=== PATIENT | male | born 1930 | race Caucasian/White ===

== ENCOUNTER 2016-07-02 22:26 | Inpatient (IN) | payer MEDICARE, OTHER ==
--- NOTE | ~2016-07-02 | CN ---
Consultation Report [facility] [address] [place]. [address] NAME: LUCIAN ZARATE : 29 STATUS : ADM IN [facility]#: [id number] AGE: 86 ADM/REG DATE : 07/02/16 MR#: [id number] REPORT SERV DATE: 07/04/16 DICTATED BY: JS MORALES DATE: 07/03/16 REPORT STATUS : Draft TRANSCRIBED BY: MODPadma DATE: 07/03/16 CONSULT DATE OF CONSULTATION: IMPRESSION: 1. Scrotal and penile edema. 2. Paraphimosis. 3. Benign prostatic hypertrophy with catheter. 4. Bilateral lower extremity edema. 5. Possible urinary tract infection. PLAN: Manual reduction of paraphimosis. Keep López catheter for acute urinary retention secondary to BPH. Catheter care b.i.d. Keep outpatient followup with Dr. Snyder regarding BPH. Continue Levaquin IV and await for culture results. Dr. Snyder to follow the patient through the course of hospital stay as well as follow up outpatient with the patient. HISTORY OF PRESENT ILLNESS: The patient presented to the hospital for shortness of breath and lower extremity edema. The patient was here a week ago, had failed two voiding trials, and therefore, has a López catheter in place until his followup appointment with Dr. Snyder in two weeks. Upon examination, the patient has paraphimosis with López catheter in place. López catheter draining appropriately with clear yellow urine. Paraphimosis reduced. The patient did not tolerate very well. The patient states that he has a flow stream normally and was told in the past that he has an enlarged prostate, which may be causing the blockage of urine. He does have some pus around the meatus and there is a culture out that has been sent on 07/02/2016. The patient was started on Levaquin IV in the meantime. The patient also has bilateral lower extremity edema along with the scrotal and penile edema. I discussed with the patient that as they evaluate and treat the pumping mechanism of the heart that the edema should resolve and then the patient states that there is significant improvement from yesterday to today on the swelling. The patient does not have pain in the scrotal or penile area at this time. The patient's creatinine is slightly elevated at 1.6, decreased from admission at 1.8 on 07/02/2016. The patient has been afebrile with a heart rate in the 90s, blood pressure slightly elevated in the 140s over 60s, respirations 16 to 18, the patient was on room air. PAST MEDICAL HISTORY: Significant for chronic congestive heart failure, hypertension, coronary artery disease with CABG x2, chronic kidney disease stage 3, BPH with indwelling López catheter x1 week, type 2 diabetes, peripheral vascular disease, and osteoporosis. SOCIAL HISTORY: Has never smoked. Does not partake in alcohol or recreational drugs. FAMILY HISTORY: Unable to obtain at this time. MEDICATIONS: Home medications were reviewed by me. Consultation Report [facility] [id number] [facility] [place]. [address] NAME: LUCIAN ZARATE : 29 STATUS : ADM IN [facility]#: [id number] AGE: 86 ADM/REG DATE : 07/02/16 MR#: [id number] REPORT SERV DATE: 07/04/16 DICTATED BY: JS MORALES DATE: 07/03/16 REPORT STATUS : Draft TRANSCRIBED BY: MARISSA DATE: 07/03/16 PHYSICAL EXAMINATION: GENERAL: This is a pleasant 86-year-old male in no acute distress. He is alert and oriented. ABDOMEN: Soft and nontender. Bladder nondistended. : López catheter in place. No prostate exam at this time. EXTREMITIES: Bilateral lower extremity pitting edema in feet, ankles, and calves. There is also edema in his scrotum and his penis, although minimal at this time. All questions from family and patient were answered and discussed at great length including outpatient options for the BPH and catheter removal; however, we discussed that Dr. Snyder would be the expert on all the options at that time. LAR/MODL JS MORALES NP / [id number] CC: MD Corazon Bartlett M.D.
--- NOTE | ~2016-07-02 | HP ---
History And Physical [facility] [place] [id number] [place]. [address] NAME: LUCIAN ZARATE : 29 STATUS : ADM IN [facility]#: [id number] AGE: 86 ADM/REG DATE : 07/02/16 MR#: [id number] REPORT SERV DATE: 07/03/16 DICTATED BY: RON REID DATE: 07/02/16 REPORT STATUS : Draft TRANSCRIBED BY: MODL DATE: 07/02/16 DATE OF ADMISSION: 07/02/2016 CHIEF COMPLAINT: Swelling in both his legs and pain. HISTORY OF PRESENT ILLNESS: This is an 86-year-old male, who presents to the emergency room at [facility] with the above-mentioned complaint. He does have a history of benign prostatic hypertrophy with chronic indwelling López, chronic congestive heart failure, chronic kidney disease stage 3, moderate aortic stenosis, and other medical problems as well. History is obtained from the patient, his son who is at bedside, and reviewing data available on the [employer] system. According to Mr. Zarate, who was recently discharged from this hospital on 06/27/2016 with indwelling López catheter and a followup appointment with Dr. Lj Snyder, he had been doing fine at home until the last couple of days, when he started noticing swelling in his lower extremities. Today, it became more severe, associated with pain, and he had pain and swelling in his penis as well. There was also discharge from his penis, which was kind of brownish in nature as well. He did have some low-grade fevers around 99 or above in the last two days as well according to the son. No chills. They finally decided to come to the emergency room to be evaluated. In the emergency room, initial workup including EKG and chest x-ray were unremarkable. His BNP today was 367.9. Lactate was 0.6 and he had a white blood cell count of 12,600. He had [id number] congestive heart failure with bilateral lower extremity edema along with edema of the penis and possibly UTI or discharge from his penis. Hospitalist Service is asked to admit him for further evaluation and treatment. At the time of my evaluation, he was not in any acute distress. He denied any chest pain, palpitations, or orthopnea. He had no cough, hemoptysis, night sweats, or weight loss. He denied any recent falls or loss of consciousness. No history of chills, but he did have fevers, low grade as mentioned above. He denied any nausea, vomiting, diarrhea, hematemesis, hematochezia. He did have some brownish-colored discharge from his penis, possibly pus. No history of recent travel or exposures other than those mentioned above. PAST MEDICAL HISTORY: Significant for chronic diastolic congestive heart failure, history of hypertension, coronary artery disease with CABG, history of chronic kidney disease stage 3, benign prostatic hypertrophy with chronic indwelling López followed by Dr. Snyder, history of diabetes mellitus type 2, history of aortic stenosis, moderate peripheral vascular disease with right carotid endarterectomy, and osteoporosis. SOCIAL HISTORY: He does not smoke, drink, or use recreational drugs at this time. FAMILY HISTORY: Noncontributory. MEDICATIONS: At home were reviewed by me in the chart today and reordered by me. History And Physical [address] [address] NAME: LUCIAN ZARATE : 29 STATUS : ADM IN [facility]#: [id number] AGE: 86 ADM/REG DATE : 07/02/16 MR#: [id number] REPORT SERV DATE: 07/03/16 DICTATED BY: RON REID DATE: 07/02/16 REPORT STATUS : Draft TRANSCRIBED BY: MARISSA DATE: 07/02/16 REVIEW OF SYSTEMS: As in history of present illness. All other systems were reviewed in detail and are quite unremarkable. PHYSICAL EXAMINATION: GENERAL: This is a pleasant 86-year-old, not in any acute distress. HEENT: His head is atraumatic, normocephalic. He is alert, awake, oriented to time, place, and person. Pupils are equal, reacting to light and accommodating. External ocular muscles are intact. Membranes are moist and pink. Sclerae are nonicteric. NECK: Supple with no jugular venous distention, lymphadenopathy, or thyromegaly. LUNGS: Clear to auscultation with no wheezes, rubs, or crackles. HEART: Heart sounds were regular with no murmurs, rubs, or gallops. ABDOMEN: Soft, nontender. Bowel sounds are present. EXTREMITIES: Showed bilateral pitting lower extremity edema with increased girth and increased warmth as well. His legs were quite painful as well. Swelling extends all the way up to his pelvis, including the penis. There was not much of a scrotal edema. NEUROLOGIC: Grossly intact. No focal sensory or motor deficits. Higher functions appeared intact. Gait was not examined. VITAL SIGNS: His vital signs today showed a temperature of 98.7, pulse 91, respirations 18 a minute, blood pressure was 144/62, and oxygen saturations were 92% on room air. LABORATORY DATA: Reviewed on the [employer] system showed white blood cell count of 12,600, hemoglobin was 10.9, hematocrit 34.8, and platelet count was 546,000. CMP showed a sodium of 141, potassium 4.5, chloride 105 and CO2 of 26, BUN was 37, creatinine was 1.89, and glucose was 124. His troponin today was 0.02 and as mentioned above, his BNP was 367.9. Films of the chest x-ray were reviewed by me on the PACS today and interpreted by me. Per my interpretation, there are no lobar consolidations, pleural effusions, or infiltrates. Bony architecture was normal. There was no cardiomegaly. A 12-lead EKG done in the emergency room was reviewed and interpreted by me. There is normal sinus rhythm with a rate of [address]-T changes. IMPRESSION: 1. Bilateral lower extremity edema. 2. Embla-tw-hupeggm congestive heart failure. 3. Penile edema with possible infection. 4. Urinary tract infection. 5. Hypertension. 6. Coronary artery disease with coronary artery bypass graft. 7. Chronic kidney disease stage 3. 8. Benign prostatic hypertrophy with chronic López catheter. 9. Diabetes mellitus type 2. 10.Moderate aortic stenosis. 11.Peripheral vascular disease with right carotid endarterectomy. PLAN: We will admit Mr. Zarate to the Hospitalist Service with telemetry. After cultures are drawn, we will start him on empiric IV antibiotics. We will start him on levofloxacin at this time. Follow Gram stains and cultures and adjust accordingly. We will also go ahead History And Physical [address] [address] NAME: LUCIAN ZARATE : 28 STATUS : ADM IN [facility]#: [id number] AGE: 86 ADM/REG DATE : 07/02/16 MR#: [id number] REPORT SERV DATE: 07/03/16 DICTATED BY: RON REID DATE: 07/02/16 REPORT STATUS : Draft TRANSCRIBED BY: AMRISSA DATE: 07/02/16 and check his procalcitonin level. We will start him on intravenous diuretics. Follow outputs and daily weights, and also get an echocardiogram in the morning. We will also get a venous Doppler of the lower extremities to rule out DVT. Meanwhile, we will control blood sugars with NovoLog given subcutaneously per sliding scale. We will also consult Dr. Lj Snyder, his urologist, to see if there is a penile infection at this point. Apparently, during the last admission, there have been many catheterizations. Meanwhile, he will be on antibiotics and cultures will be drawn as well. We will also place him on low-dose unfractionated heparin for DVT prophylaxis while here. Please see today's orders for all the details. I have discussed the above plans with the patient and the son. Questions were answered and they are agreeable to the above recommendations. Hospitalist Service will be following him during his stay here. /MARISSA Ron Reid M.D. / [id number] CC: MD Corazon Bartlett M.D.
--- NOTE | ~2016-07-02 | DS ---
Discharge Summary [facility] [address] [place]. [address] NAME: LUCIAN ZARATE : 28 STATUS : DIS IN PAT#: [id number] AGE: 86 ADM/REG DATE : 07/02/16 MR#: [id number] REPORT SERV DATE: 07/05/16 DICTATED BY: JR. SONI WILLIAM JOHN DATE: 07/04/16 REPORT STATUS : Draft TRANSCRIBED BY: MARISSA DATE: 07/04/16 ADMISSION DATE: 07/02/2016 DISCHARGE DATE: 07/04/2016 DISCHARGE DIAGNOSES: Include. 1. Hypokalemia. 2. Penile edema and peripheral edema. 3. Hfwjv-hm-epuwgja diastolic heart failure. 4. Moderate aortic stenosis, which is decompensated. 5. Urinary tract infection. 6. Benign prostatic hypertrophy with chronic López. 7. Hypertension. 8. Chronic kidney disease, stage III. 9. Diabetes mellitus type 2. 10.History of peripheral vascular disease, status post left carotid endarterectomy. OPERATIONS, PROCEDURES, AND TREATMENTS: Include: 1. PA and lateral chest x-ray done 07/02/2016 which showed right pleural effusion with atelectasis at the right lung base, improved from prior study. 2. Venous Doppler ultrasound in bilateral lower extremities, which was unremarkable. 3. Blood cultures x2 done 07/02/2016, which are sterile. DISCHARGE MEDICATIONS: Include: 1. Aspirin 81 daily. 2. Plavix 75 daily. 3. Vitamin D 1000 units daily. 4. Lasix 40 mg every morning. 5. Neurontin 100 mg orally three times a day. 6. Melatonin 6 mg at bedtime. 7. Metoprolol 12.5 twice a day. 8. Nifedipine 60 mg daily. 9. Flomax 0.4 mg daily. 10.Crestor 40 mg daily. 11.Glipizide 2.5 daily. 12.Levaquin 750 mg every other day for two doses. HOSPITAL COURSE: The patient is an 86-year-old white male, presented with history of chronic kidney disease, chronic heart failure, moderate aortic stenosis, who presented to the emergency room on 07/02/2016 with complaint of increased leg swelling and pain. He had just been discharged from the hospital on 06/27/2016 with an indwelling López and had a followup appointment with Dr. Snyder. He had been doing fine in the last few days when he had rapid onset of increased swelling of the legs and penis. In the emergency room, the EKG and chest x-ray were unremarkable. BNP was elevated. White count was 12.6. Evidence of peripheral edema and pyuria. For full details of the admission history, physical, and data, please see Dr. Flores's Discharge Summary [address] [place]. [address] NAME: LUCIAN ZARATE : 28 STATUS : DIS IN PAT#: [id number] AGE: 86 ADM/REG DATE : 07/02/16 MR#: [id number] REPORT SERV DATE: 07/05/16 DICTATED BY: JR. SONI WILLIAM JOHN DATE: 07/04/16 REPORT STATUS : Draft TRANSCRIBED BY: MARISSA DATE: 07/04/16 dictated history and physical. The patient is admitted to the hospital where he was diuresed with IV Lasix. The patient had a brisk diuresis with a total of 40 mg IV x5 doses. He diuresed nearly 3 L. His penile swelling had nearly resolved. He was found to have phimosis and was seen by Urology. Dr. Snyder is to see the patient again today, and if the patient is stable, the patient will be discharged home. I spent considerable amount of time talking with the patient and family about the importance of salt and fluid restriction and weighing himself daily wearing the same clothes. The patient is followed by Dr. Marsh and knows to call if he has further problems. The patient's urinary tract infection was treated with Levaquin with a total of 5 day course. For discharge exam and laboratory, please see daily progress note. DISCHARGE DIET: A 2 g sodium, 1.2 L fluid restriction. ACTIVITY: As tolerated. FOLLOWUP INSTRUCTIONS: 1. Follow up with Dr. Marsh in one to two weeks. 2. Follow up with Dr. Corazon Correa in one to two weeks. Follow up with Dr. Snyder per his wishes. The patient is to weigh himself daily and call Dr. Marsh if greater than 3-pound weight gain. This discharge took 37 minutes for patient encounter, coordination of care, and documentation. For discharge exam and laboratory, please see daily progress note. MARLA/MARISSA Ancelmo Soni Jr, MD / [id number] CC: Ancelmo Soni Jr, MD Kimberly Carlton, M.D.
[2016-07-02 18:37] LABS: BASOPHILS 0.3 %; BASOPHILS ABSOLUTE 0.04 10/3/uL (0.0-0.16); EOSINOPHILS 0.3 %; EOSINOPHILS ABSOLUTE 0.04 10/3/uL (0.0-0.53); HEMOGLOBIN 10.9 g/dL (13.6-17.8); IMMATURE GRANULOCYTES 0.3 %; IMMATURE GRANULOCYTES ABSOLUTE 0.04 10/3/uL (0.0-0.11); LYMPHOCYTES 8.6 %; LYMPHOCYTES ABSOLUTE 1.09 10/3/uL (0.67-4.30); MEAN CORPUS HGB CONC 31.3 g/dL (32.0-36.0); MEAN CORPUSCULAR HEMOGLOB 25.7 pg (26.0-34.0); MEAN CORPUSCULAR VOLUME 82.1 fL (80-100); MEAN PLATELET VOLUME 9.7 fL (9.2-13.0); MONOCYTES 6.7 %; MONOCYTES ABSOLUTE 0.85 10/3/uL (0.21-1.20); NEUTROPHILS 83.8 %; NEUTROPHILS ABSOLUTE 10.57 10/3/uL (2.02-8.40); RBC DISTRIBUTION WIDTH 16.3 % (12.0-16.0); RED CELL COUNT 4.24 10/6/uL (4.7-6.1); WHITE BLOOD CELLS 12.6 10/3/uL (4.5-10.5)
[2016-07-02 18:44] LABS: ASCORBIC ACID (UR NOT ORDER) NEG (NEG); BILIRUBIN, URINE NEGATIVE (NEG); ER URINALYSIS TAT 0 Hrs 11 Mins; INTERNATIONAL NORMAL RATI 1.1 UNITS (-); KETONE, URINE NEGATIVE (NEG); LEUKOCYTE ESTERASE(NOT OR MOD (NEG); NITRITE (URINE) NEG (NEG); PARTIAL THROMBO TIME 29.9 SEC (22.5-37.2); PROTIME (NOT ORD) 13.8 SEC (12.0-14.5); WBC (NOT ORDERED) (RFLEX) 77 (0-5)
[2016-07-02 19:03] LABS: HEMATOCRIT 34.8 % (40.0-51.0); MANUAL DIFF NO %; PLATELET COUNT 546 10/3/uL (150-400)
[2016-07-02 19:05] LABS: CALCIUM, SERUM 9.5 MG/DL (8.5-10.4); CHLORIDE, SERUM 105 MMOL/L (96-112); CO2 (CARBON DIOXIDE) 26 MMOL/L (24-34); CREATININE 1.89 MG/DL (0.70-1.30); GFR AFRICAN AMERICAN 36 ML/MIN (>=60); GFR NON AFRICAN AMERICAN 31 ML/MIN (>=60); GLUCOSE, SERUM 124 MG/DL (60-99); SODIUM, SERUM 141 MMOL/L (135-148); TROPONIN I 0.02 NG/ML (<0.05)
[2016-07-02 19:07] LABS: BUN (BLOOD UREA NITROGEN) 37 MG/DL (6-23); CHEST PAIN PROFILE TAT 0 Hrs 32 Mins; POTASSIUM, SERUM 4.5 MMOL/L (3.5-5.3)
[~2016-07-02 22:26] MED LIST: ADALAT CC30 MG PO; ASAB PO; BENICAR HCT1 TA2 PO; CRESTOR20 MG PO; CRESTOR40 MG PO; FLEX PO; FLOMAX4 PO; GLUCOTROL5 PO; HALF81 PO; L20 PO; L40 PO; LOP25 PO; MELA3 PO; NEBULIZER SOLUTION INH; NEUR100 PO; NIACOR500 MG PO; NIFEDIAC CC30 MG PO; NXL6 PO; PLAVIX PO; SPIRO25 PO; VITAMIN D31000 UNIT PO; ZOL50 PO
[2016-07-03 00:16] LABS: PROCALCITONIN 0.15 ng/mL (<0.5)
[2016-07-03 06:17] LABS: BASOPHILS 0.6 %; BASOPHILS ABSOLUTE 0.07 10/3/uL (0.0-0.16); EOSINOPHILS 2.9 %; EOSINOPHILS ABSOLUTE 0.33 10/3/uL (0.0-0.53); HEMOGLOBIN 9.8 g/dL (13.6-17.8); IMMATURE GRANULOCYTES 0.4 %; IMMATURE GRANULOCYTES ABSOLUTE 0.04 10/3/uL (0.0-0.11); LYMPHOCYTES 5.3 %; MEAN CORPUS HGB CONC 31.4 g/dL (32.0-36.0); MEAN CORPUSCULAR HEMOGLOB 25.7 pg (26.0-34.0); MEAN CORPUSCULAR VOLUME 81.7 fL (80-100); MEAN PLATELET VOLUME 9.3 fL (9.2-13.0); MONOCYTES 10.9 %; MONOCYTES ABSOLUTE 1.23 10/3/uL (0.21-1.20); NEUTROPHILS 79.9 %; NEUTROPHILS ABSOLUTE 9.04 10/3/uL (2.02-8.40); PLATELET COUNT 491 10/3/uL (150-400); RBC DISTRIBUTION WIDTH 16.3 % (12.0-16.0); RED CELL COUNT 3.82 10/6/uL (4.7-6.1); WHITE BLOOD CELLS 11.3 10/3/uL (4.5-10.5)
[2016-07-03 06:27] LABS: HEMATOCRIT 31.2 % (40.0-51.0); MANUAL DIFF NO %
[2016-07-03 06:36] LABS: BUN (BLOOD UREA NITROGEN) 33 MG/DL (6-23); CALCIUM, SERUM 9.1 MG/DL (8.5-10.4); CHLORIDE, SERUM 104 MMOL/L (96-112); CO2 (CARBON DIOXIDE) 28 MMOL/L (24-34); CREATININE 1.66 MG/DL (0.70-1.30); GFR AFRICAN AMERICAN 42 ML/MIN (>=60); GFR NON AFRICAN AMERICAN 37 ML/MIN (>=60); GLUCOSE, SERUM 112 MG/DL (60-99); PHOSPHORUS, SERUM 3.2 MG/DL (2.5-4.5); POTASSIUM, SERUM 3.5 MMOL/L (3.5-5.3); SODIUM, SERUM 141 MMOL/L (135-148)
[2016-07-04 06:48] LABS: BUN (BLOOD UREA NITROGEN) 32 MG/DL (6-23); CALCIUM, SERUM 8.6 MG/DL (8.5-10.4); CHLORIDE, SERUM 101 MMOL/L (96-112); CO2 (CARBON DIOXIDE) 32 MMOL/L (24-34); CREATININE 1.71 MG/DL (0.70-1.30); GFR AFRICAN AMERICAN 41 ML/MIN (>=60); GFR NON AFRICAN AMERICAN 35 ML/MIN (>=60); GLUCOSE, SERUM 97 MG/DL (60-99); POTASSIUM, SERUM 3.4 MMOL/L (3.5-5.3); SODIUM, SERUM 141 MMOL/L (135-148)
[2016-07-04] MEDS ORDERED: LEVAQUIN750 MG PO (13:29)
[2016-07-30] MEDS ORDERED: DURICEF PO (14:43)
== END 2016-07-04 18:16 | disposition home or self-care (01) | DRG 698 ==
LOC: ER 22:26 → 2SO 23:36
PROVIDERS: Internal Medicine; Internal Medicine Pulmonary Disease; Specialist
DX: T83.518A Infection and inflammatory reaction due to other urinary catheter, initial encounter (principal); I50.43 Acute on chronic combined systolic (congestive) and diastolic (congestive) heart failure; E11.22 Type 2 diabetes mellitus with diabetic chronic kidney disease; N39.0 Urinary tract infection, site not specified; I13.0 Hypertensive heart and chronic kidney disease with heart failure and stage 1 through stage 4 chronic kidney disease, or unspecified chronic kidney disease; N18.3 Chronic kidney disease, stage 3 (moderate); N40.0 Benign prostatic hyperplasia without lower urinary tract symptoms; I35.0 Nonrheumatic aortic (valve) stenosis; I73.9 Peripheral vascular disease, unspecified; M81.0 Age-related osteoporosis without current pathological fracture; N50.89 Other specified disorders of the male genital organs; N47.2 Paraphimosis; I25.10 Atherosclerotic heart disease of native coronary artery without angina pectoris; E87.6 Hypokalemia; N47.1 Phimosis; Z95.1 Presence of aortocoronary bypass graft
CPT/HCPCS: 71020; 80048; 81001; 82962; 83605; 83735; 83880; 84100; 84145; 84484; 85025; 85610; 85730; 87040; 87086; 93005; 93970; 94640; 99285; A9270-GY; J1956